=== PATIENT | male | born 1945 | race Hispanic/Latino ===

== ENCOUNTER 2017-08-15 09:16 | Emergency (ER) | payer MEDICARE ==
[~2017-08-15] VITALS: Ht 180.3 cm; Wt 131.5 kg
[~2017-08-15 09:16] MED LIST: DOXAZOSIN MESYLA4 MG; FUROSEMIDE40 MG PO; GLYBURIDE5 MG PO; LANTUS; LYRICA100 MG; NOVOLOG; NOVOLOG MI100 UNIT/1; OMEPRAZOLE20 M1; PIOGLITAZONE30 MG; POTASSIUM CHLO10 MEQ; SIMVASTATIN40 MG PO; TAMSULOSIN HCL0.4 MG; VERAPAMIL ER240 MG
[2017-08-15] MEDS ORDERED: METHOCARBAMOL 750 MG TAB PO ONE (10:15)
[2017-08-15] MEDS ORDERED: KETOROLAC TROMETHAMINE 60 MG/2 ML VIAL IM ONE (10:15)
[2017-08-15] MEDS ORDERED: DEXAMETHASONE SOD PHOS 10 MG/1 ML VIAL INJ ONE ×2 (10:15→10:45)
[2017-08-15] MEDS ORDERED: KETOROLAC TROMETHAMINE 30 MG/ML VIAL IM STA (10:35)
--- NOTE | 2017-08-15 11:39 | Diagnostic Imaging Report ---
PROCEDURE:L-SPINE COMPLETE COMPARISON:None. INDICATIONS:BACK PAIN, LEFT HIP PAIN FINDINGS: There are 5 lumbar-type vertebral bodies. Degenerative changes of the lumbar spine. The vertebral bodies are well-aligned without evidence of spondylolisthesis. There are no fractures, lytic or blastic lesions. The disc-space heights are well-maintained. The sacroiliac joints are unremarkable. CONCLUSION: No acute radiographic abnormality. Dictated by: Cheo Donahue M.D. on 08/15/2017 at 11:47 Electronically approved by: Cheo Donahue M.D. on 08/15/2017 at 11:47
--- NOTE | 2017-08-15 11:45 | Diagnostic Imaging Report ---
PROCEDURE:HIP LEFT 2-3 VW (+/- PELVIS) COMPARISON:None. INDICATIONS:LEFT HIP PAIN FINDINGS: Normal mineralization. No acute fracture or dislocation. Joint spaces are within normal limits. The soft tissues are unremarkable. Sclerotic density in the right iliac wing, likely representing a bone island. Minimal degenerative changes are present in the hips bilaterally, as evidenced by subchondral sclerosis and joint space narrowing. CONCLUSION: No acute radiographic abnormality. Dictated by: Cheo Donahue M.D. on 08/15/2017 at 11:53 Electronically approved by: Cheo Donahue M.D. on 08/15/2017 at 11:53
[2017-08-15 14:30] VITALS: BP 143/80
== END 2017-08-15 15:37 | disposition home or self-care (01) ==
LOC: ER 09:16
DX: M25.552 Pain in left hip (principal); M79.652 Pain in left thigh; M79.662 Pain in left lower leg; M54.16 Radiculopathy, lumbar region; R26.2 Difficulty in walking, not elsewhere classified; E11.40 Type 2 diabetes mellitus with diabetic neuropathy, unspecified
CPT/HCPCS: 72110; 73502; 99283; J1100; J1885

== ENCOUNTER 2018-01-05 11:39 | Emergency (ER) | payer MEDICARE ==
[~2018-01-05] VITALS: Ht 180.3 cm; Wt 131.5 kg
--- OUTSIDE RECORDS SUMMARY | 2018-01-05 11:42 | XMS REPORT ---
Author Author [facility] Address Unknown Phone Unavailable Care Team Providers Care [employer]ra[employer] Name Role Phone YVONNE OLEA PP Unavailable JEFE CHARLES MD, M.D. Unavailable Unavailable YVONNE OLEA Unavailable Unavailable VINAY GROSS Unavailable Unavailable Problems This patient has no known problems. Allergies, Adverse Reactions, Alerts This patient has no known allergies or adverse reactions. Medications This patient has no known medications. Encounters Start Date/Time End Date/Time Encounter Type Admission Type Attending [facility] Facility Care Department Encounter ID 2017-11-14 10:12:00 2017-11-14 10:12:00 Outpatient C YVONNE OLEA [facility] [id number] Results Test Description Test Time Test Comments Text Results Atomic Results Result Comments POC Glucose, Blood 2017-11-26 12:13:00 POC Glucose (test code=POCGLUC) 230 mg/dL 70-115 If you consider your patient critically ill, the Maciel Accu-Chek InformII metershould not be used for Glucose determinations.Draw a venous Glucose and send to the Main Lab for Analysis. POC Glucose, [id number] 09:32:00* Test Item Value Reference Range Comments POC Glucose (test code=POCGLUC) 276 mg/dL 70-115 If you consider your patient critically ill, the Maciel Accu-Chek InformII metershould not be used for Glucose determinations.Draw a venous Glucose and send to the Main Lab for Analysis. Comprehensive Metabolic [id number] 07:14:00* Test Item Value Reference Range Comments Sodium (test code=NA) 139 mmol/L 135-145 Potassium (test code=K) 3.7 mmol/L 3.5-5.1 Chloride (test code=CL) 100 mmol/L 98-105 Carbon Dioxide (test code=CO2) 27 mmol/L 22-29 Glucose (test code=GLU) 147 mg/dL 70-115 Blood Urea Nitrogen (test code=BUN) 18 mg/dL 8-23 Creatinine (test code=CREAT) 1.0 mg/dL 0.7-1.2 Calcium (test code=CA) 8.8 mg/dL 8.3-10.5 Prot Total (test code=TP) 5.9 g/dL 6.4-8.3 Albumin (test code=ALB) 3.3 g/dL 3.5-5.2 A/G Ratio (test code=AGRATIO) 1.3 Ratio Globulin (test code=GLOB) 2.6 2.9-3.1 Bili Total (test code=TBIL) 0.8 mg/dL 0.1-0.9 Alk Phos (test code=APHOS) 73 U/L 40-129 AST (test code=AST) 15 U/L 1-40 ALT (test code=ALT) 9 U/L 1-41 BUN/Creatinine Ratio (test code=BCRATIO) 18.0 Anion Gap (test code=AGAP) 12 mmol/L 7-16 Estimated GFR (test code=GFR) >60 mL/min/1.73m2 eGFR (estimated Glomerular Filtration Rate) is an estimated value,calculated from the patient's serum creatinine using the MDRD equation.It is NOT the patient's actual GFR. The eGFR provides a more clinicallyuseful measure of kidney disease than serum creatinine alone.This calculation takes sex and race into account, if the informationis provided. If the race is not provided, and the patient isAfrican- [place], multiply by 1.212. If sex is not provided, and thepatient is female, multiply by 0.742. Results for patients <18 years ofage have not been validated by the MDRD study and should be interpretedwith caution.eGFR Result Interpretation:eGFR > or=60 is in the Normal RangeeGFR < 60 may mean kidney diseaseeGFR < 15 may mean kidney failureRanges recommended by the National Kidney Foundation,http://nkdep.nih.gov [id number] 07:14:00* Test Item Value Reference Range Comments Phosphorus (test code=PO4) 3.3 mg/dL 2.70-4.50 Magnesium, [id number] 07:14:00* Test Item Value Reference Range Comments Magnesium (test code=MG) 2.4 mg/dL 1.7-2.5 POC Glucose, [id number] 21:04:00* Test Item Value Reference Range Comments POC Glucose (test code=POCGLUC) 217 mg/dL 70-115 If you consider your patient critically ill, the Maciel Accu-Chek InformII metershould not be used for Glucose determinations.Draw a venous Glucose and send to the Main Lab for Analysis. POC Glucose, [id number] 16:34:00* Test Item Value Reference Range Comments POC Glucose (test code=POCGLUC) 151 mg/dL 70-115 Notify RN or MDIf you consider your patient critically ill, the Mcaiel Accu-Chek InformII metershould not be used for Glucose determinations.Draw a venous Glucose and send to the Main Lab for Analysis. POC Glucose, [id number] 12:04:00* Test Item Value Reference Range Comments POC Glucose (test code=POCGLUC) 218 mg/dL 70-115 Notify RN or MDIf you consider your patient critically ill, the Maciel Accu-Chek InformII metershould not be used for Glucose determinations.Draw a venous Glucose and send to the Main Lab for Analysis. POC Glucose, [id number] 08:00:00* Test Item Value Reference Range Comments POC Glucose (test code=POCGLUC) 180 mg/dL 70-115 Notify RN or MDIf you consider your patient critically ill, the Maciel Accu-Chek InformII metershould not be used for Glucose determinations.Draw a venous Glucose and send to the Main Lab for Analysis. Comprehensive Metabolic [id number] 06:12:00* Test Item Value Reference Range Comments Sodium (test code=NA) 141 mmol/L 135-145 Potassium (test code=K) 3.5 mmol/L 3.5-5.1 Chloride (test code=CL) 101 mmol/L 98-105 Carbon Dioxide (test code=CO2) 28 mmol/L 22-29 Glucose (test code=GLU) 170 mg/dL 70-115 Blood Urea Nitrogen (test code=BUN) 18 mg/dL 8-23 Creatinine (test code=CREAT) 1.2 mg/dL 0.7-1.2 Calcium (test code=CA) 8.5 mg/dL 8.3-10.5 Prot Total (test code=TP) 5.4 g/dL 6.4-8.3 Albumin (test code=ALB) 3.0 g/dL 3.5-5.2 A/G Ratio (test code=AGRATIO) 1.3 Ratio Globulin (test code=GLOB) 2.4 2.9-3.1 Bili Total (test code=TBIL) 0.7 mg/dL 0.1-0.9 Alk Phos (test code=APHOS) 69 U/L 40-129 AST (test code=AST) 13 U/L 1-40 ALT (test code=ALT) 7 U/L 1-41 BUN/Creatinine Ratio (test code=BCRATIO) 15.0 Anion Gap (test code=AGAP) 12 mmol/L 7-16 Estimated GFR (test code=GFR) >60 mL/min/1.73m2 eGFR (estimated Glomerular Filtration Rate) is an estimated value,calculated from the patient's serum creatinine using the MDRD equation.It is NOT the patient's actual GFR. The eGFR provides a more clinicallyuseful measure of kidney disease than serum creatinine alone.This calculation takes sex and race into account, if the informationis provided. If the race is not provided, and the patient isAfrican- [place], multiply by 1.212. If sex is not provided, and thepatient is female, multiply by 0.742. Results for patients <18 years ofage have not been validated by the MDRD study and should be interpretedwith caution.eGFR Result Interpretation:eGFR > or=60 is in the Normal RangeeGFR < 60 may mean kidney diseaseeGFR < 15 may mean kidney failureRanges recommended by the National Kidney Foundation,http://nkdep.nih.gov Magnesium, [id number] 06:12:00* Test Item Value Reference Range Comments Magnesium (test code=MG) 2.5 mg/dL 1.7-2.5 [id number] 06:12:00* Test Item Value Reference Range Comments Phosphorus (test code=PO4) 2.7 mg/dL 2.70-4.50 POC Glucose, [id number] 21:02:00* Test Item Value Reference Range Comments POC Glucose (test code=POCGLUC) 176 mg/dL 70-115 If you consider your patient critically ill, the Maciel Accu-Chek InformII metershould not be used for Glucose determinations.Draw a venous Glucose and send to the Main Lab for Analysis. POC Glucose, [id number] 16:28:00* Test Item Value Reference Range Comments POC Glucose (test code=POCGLUC) 340 mg/dL 70-115 Notify RN or MDIf you consider your patient critically ill, the Maciel Accu-Chek InformII metershould not be used for Glucose determinations.Draw a venous Glucose and send to the Main Lab for Analysis. POC Glucose, [id number] 11:44:00* Test Item Value Reference Range Comments POC Glucose (test code=POCGLUC) 265 mg/dL 70-115 Notify RN or MDIf you consider your patient critically ill, the Maciel Accu-Chek InformII metershould not be used for Glucose determinations.Draw a venous Glucose and send to the Main Lab for Analysis. POC Glucose, [id number] 07:51:00* Test Item Value Reference Range Comments POC Glucose (test code=POCGLUC) 144 mg/dL 70-115 Notify RN or MDIf you consider your patient critically ill, the Maciel Accu-Chek InformII metershould not be used for Glucose determinations.Draw a venous Glucose and send to the Main Lab for Analysis. Magnesium, [id number] 06:44:00* Test Item Value Reference Range Comments Magnesium (test code=MG) 2.4 mg/dL 1.7-2.5 Comprehensive Metabolic [id number] 06:44:00* Test Item Value Reference Range Comments Sodium (test code=NA) 140 mmol/L 135-145 Potassium (test code=K) 3.4 mmol/L 3.5-5.1 Chloride (test code=CL) 99 mmol/L 98-105 Carbon Dioxide (test code=CO2) 29 mmol/L 22-29 Glucose (test code=GLU) 176 mg/dL 70-115 Blood Urea Nitrogen (test code=BUN) 20 mg/dL 8-23 Creatinine (test code=CREAT) 1.2 mg/dL 0.7-1.2 Calcium (test code=CA) 8.3 mg/dL 8.3-10.5 Prot Total (test code=TP) 5.9 g/dL 6.4-8.3 Albumin (test code=ALB) 3.2 g/dL 3.5-5.2 A/G Ratio (test code=AGRATIO) 1.2 Ratio Globulin (test code=GLOB) 2.7 2.9-3.1 Bili Total (test code=TBIL) 0.5 mg/dL 0.1-0.9 Alk Phos (test code=APHOS) 73 U/L 40-129 AST (test code=AST) 12 U/L 1-40 ALT (test code=ALT) 6 U/L 1-41 BUN/Creatinine Ratio (test code=BCRATIO) 16.7 Anion Gap (test code=AGAP) 12 mmol/L 7-16 Estimated GFR (test code=GFR) >60 mL/min/1.73m2 eGFR (estimated Glomerular Filtration Rate) is an estimated value,calculated from the patient's serum creatinine using the MDRD equation.It is NOT the patient's actual GFR. The eGFR provides a more clinicallyuseful measure of kidney disease than serum creatinine alone.This calculation takes sex and race into account, if the informationis provided. If the race is not provided, and the patient isAfrican- [place], multiply by 1.212. If sex is not provided, and thepatient is female, multiply by 0.742. Results for patients <18 years ofage have not been validated by the MDRD study and should be interpretedwith caution.eGFR Result Interpretation:eGFR > or=60 is in the Normal RangeeGFR < 60 may mean kidney diseaseeGFR < 15 may mean kidney failureRanges recommended by the National Kidney Foundation,http://nkdep.nih.gov [id number] 06:44:00* Test Item Value Reference Range Comments Phosphorus (test code=PO4) 2.6 mg/dL 2.70-4.50 [id number] 06:10:00* Test Item Value Reference Range Comments Hemoglobin (test code=HGB) 10.6 gm/dL 13.4-17.4 POC Glucose, [id number] 19:09:00* Test Item Value Reference Range Comments POC Glucose (test code=POCGLUC) 349 mg/dL 70-115 If you consider your patient critically ill, the Maciel Accu-Chek InformII metershould not be used for Glucose determinations.Draw a venous Glucose and send to the Main Lab for Analysis. POC Glucose, [id number] 16:55:00* Test Item Value Reference Range Comments POC Glucose (test code=POCGLUC) 305 mg/dL 70-115 If you consider your patient critically ill, the Maciel Accu-Chek InformII metershould not be used for Glucose determinations.Draw a venous Glucose and send to the Main Lab for Analysis. POC Glucose, [id number] 07:43:00* Test Item Value Reference Range Comments POC Glucose (test code=POCGLUC) 192 mg/dL 70-115 If you consider your patient critically ill, the Maciel Accu-Chek InformII metershould not be used for Glucose determinations.Draw a venous Glucose and send to the Main Lab for Analysis. Magnesium, [id number] 06:33:00* Test Item Value Reference Range Comments Magnesium (test code=MG) 2.1 mg/dL 1.7-2.5 Comprehensive Metabolic [id number] 06:33:00* Test Item Value Reference Range Comments Sodium (test code=NA) 138 mmol/L 135-145 Potassium (test code=K) 4.0 mmol/L 3.5-5.1 Chloride (test code=CL) 97 mmol/L 98-105 Carbon Dioxide (test code=CO2) 31 mmol/L 22-29 Glucose (test code=GLU) 198 mg/dL 70-115 Blood Urea Nitrogen (test code=BUN) 22 mg/dL 8-23 Creatinine (test code=CREAT) 1.3 mg/dL 0.7-1.2 Calcium (test code=CA) 9.1 mg/dL 8.3-10.5 Prot Total (test code=TP) 6.5 g/dL 6.4-8.3 Albumin (test code=ALB) 3.5 g/dL 3.5-5.2 A/G Ratio (test code=AGRATIO) 1.2 Ratio Globulin (test code=GLOB) 3.0 2.9-3.1 Bili Total (test code=TBIL) 0.8 mg/dL 0.1-0.9 Alk Phos (test code=APHOS) 72 U/L 40-129 AST (test code=AST) 12 U/L 1-40 ALT (test code=ALT) 8 U/L 1-41 BUN/Creatinine Ratio (test code=BCRATIO) 16.9 Anion Gap (test code=AGAP) 10 mmol/L 7-16 Estimated GFR (test code=GFR) 58 mL/min/1.73m2 eGFR (estimated Glomerular Filtration Rate) is an estimated value,calculated from the patient's serum creatinine using the MDRD equation.It is NOT the patient's actual GFR. The eGFR provides a more clinicallyuseful measure of kidney disease than serum creatinine alone.This calculation takes sex and race into account, if the informationis provided. If the race is not provided, and the patient isAfrican- [place], multiply by 1.212. If sex is not provided, and thepatient is female, multiply by 0.742. Results for patients <18 years ofage have not been validated by the MDRD study and should be interpretedwith caution.eGFR Result Interpretation:eGFR > or=60 is in the Normal RangeeGFR < 60 may mean kidney diseaseeGFR < 15 may mean kidney failureRanges recommended by the National Kidney Foundation,http://nkdep.nih.gov CBC with [id number] 06:31:00* Test Item Value Reference Range Comments WBC (test code=WBC) 13.4 K/cumm 4.4-10.5 RBC (test code=RBC) 4.00 M/cumm 4.10-5.70 Hemoglobin (test code=HGB) 12.0 gm/dL 13.4-17.4 Hematocrit (test code=HCT) 35.0 % 38.7-52.0 MCV (test code=MCV) 87.4 fL 80-100 MCH (test code=MCH) 29.9 pg 27.0-32.5 MCHC (test code=MCHC) 34.2 g/dL 32.0-37.5 RDW (test code=RDW) 13.6 % 11.5-14.5 Platelet Count (test code=PLTCT) 212 K/cumm 140-440 MPV (test code=MPV) 8.2 fL Diff Method (test code=DIFFM) Auto Neutrophil (test code=NEUT) 78.0 % 36-70 Lymphocyte (test code=LYMPH) 13.9 % 12-44 Monocyte (test code=MONO) 7.0 % 0-11 Eosinophil (test code=EOS) 0.7 % 0-7 Basophil (test code=BASO) 0.3 % 0-2 Neutro Abs (test code=ANEUT) 10.5 K/cumm 1.6-7.4 Lymph Abs (test code=ALYMPH) 1.9 K/cumm 0.5-4.6 Maury Abs (test code=AMONO) 0.9 K/cumm 0.0-1.2 Eos Abs (test code=AEOS) 0.10 K/cumm 0.00-0.74 Baso Abs (test code=ABASO) 0.1 K/cumm 0.00-0.21 [id number] 06:30:00* Test Item Value Reference Range Comments Phosphorus (test code=PO4) 3.1 mg/dL 2.70-4.50 POC Glucose, [id number] 19:23:00* Test Item Value Reference Range Comments POC Glucose (test code=POCGLUC) 293 mg/dL 70-115 If you consider your patient critically ill, the Maciel Accu-Chek InformII metershould not be used for Glucose determinations.Draw a venous Glucose and send to the Main Lab for Analysis. POC Glucose, [id number] 16:04:00* Test Item Value Reference Range Comments POC Glucose (test code=POCGLUC) 269 mg/dL 70-115 Notify RN or MDIf you consider your patient critically ill, the Maciel Accu-Chek InformII metershould not be used for Glucose determinations.Draw a venous Glucose and send to the Main Lab for Analysis. POC Glucose, [id number] 11:27:00* Test Item Value Reference Range Comments POC Glucose (test code=POCGLUC) 325 mg/dL 70-115 Notify RN or MDIf you consider your patient critically ill, the Maciel Accu-Chek InformII metershould not be used for Glucose determinations.Draw a venous Glucose and send to the Main Lab for Analysis. [id number] 07:10:00* Test Item Value Reference Range Comments Hemoglobin (test code=HGB) 11.9 gm/dL 13.4-17.4 Magnesium, [id number] 07:08:00* Test Item Value Reference Range Comments Magnesium (test code=MG) 2.0 mg/dL 1.7-2.5 Comprehensive Metabolic [id number] 07:08:00* Test Item Value Reference Range Comments Sodium (test code=NA) 138 mmol/L 135-145 Potassium (test code=K) 3.8 mmol/L 3.5-5.1 Chloride (test code=CL) 95 mmol/L 98-105 Carbon Dioxide (test code=CO2) 32 mmol/L 22-29 Glucose (test code=GLU) 194 mg/dL 70-115 Blood Urea Nitrogen (test code=BUN) 26 mg/dL 8-23 Creatinine (test code=CREAT) 1.3 mg/dL 0.7-1.2 Calcium (test code=CA) 8.6 mg/dL 8.3-10.5 Prot Total (test code=TP) 6.1 g/dL 6.4-8.3 Albumin (test code=ALB) 3.7 g/dL 3.5-5.2 A/G Ratio (test code=AGRATIO) 1.5 Ratio Globulin (test code=GLOB) 2.4 2.9-3.1 Bili Total (test code=TBIL) 0.5 mg/dL 0.1-0.9 Alk Phos (test code=APHOS) 73 U/L 40-129 AST (test code=AST) 16 U/L 1-40 ALT (test code=ALT) 15 U/L 1-41 BUN/Creatinine Ratio (test code=BCRATIO) 20.0 Anion Gap (test code=AGAP) 11 mmol/L 7-16 Estimated GFR (test code=GFR) 58 mL/min/1.73m2 eGFR (estimated Glomerular Filtration Rate) is an estimated value,calculated from the patient's serum creatinine using the MDRD equation.It is NOT the patient's actual GFR. The eGFR provides a more clinicallyuseful measure of kidney disease than serum creatinine alone.This calculation takes sex and race into account, if the informationis provided. If the race is not provided, and the patient isAfrican- [place], multiply by 1.212. If sex is not provided, and thepatient is female, multiply by 0.742. Results for patients <18 years ofage have not been validated by the MDRD study and should be interpretedwith caution.eGFR Result Interpretation:eGFR > or=60 is in the Normal RangeeGFR < 60 may mean kidney diseaseeGFR < 15 may mean kidney failureRanges recommended by the National Kidney Foundation,http://nkdep.nih.gov POC Glucose, [id number] 21:01:00* Test Item Value Reference Range Comments POC Glucose (test code=POCGLUC) 269 mg/dL 70-115 If you consider your patient critically ill, the Maciel Accu-Chek InformII metershould not be used for Glucose determinations.Draw a venous Glucose and send to the Main Lab for Analysis. 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 POC Glucose, [id number] 12:31:00 * Test Item Value Reference Range Comments POC Glucose (test code=POCGLUC) 178 mg/dL 70-115 If you consider your patient critically ill, the Maciel Accu-Chek InformII metershould not be used for Glucose determinations.Draw a venous Glucose and send to the Main Lab for Analysis. POC Glucose, [id number] 07:36:00* Test Item Value Reference Range Comments POC Glucose (test code=POCGLUC) 119 mg/dL 70-115 Notify RN or MDIf you consider your patient critically ill, the Maciel Accu-Chek InformII metershould not be used for Glucose determinations.Draw a venous Glucose and send to the Main Lab for Analysis. Culture, [id number] 08:46:00Specimen: UrineCollected: 11/14/2017 12:59 Status: Final Last Updated: 11/16/2017 08:46 Culture Result (Final ) (Final) 11/15/17 No growth 24 hours 11/16/17 <10,000 CFU/mL Non Lactose W[employer] Sales[employer] Gram negative rods Culture, [id number] 08:44:00Specimen: NasalCollected: 11/14/2017 12:59 Status: Final Last Updated: 11/16/2017 08: 44 Culture Result (Final) (Final) 11/15/17 Normal ezra at 24 hours 11/16/17 Normal ezra at 48 hours Glycosylated [id number] 15:13:00 * Test Item Value Reference Range Comments HBA1c (test code=HBA1C) 6.4 % 4.8-5.9 Partial Thromboplastin [id number] 13:45:00* Test Item Value Reference Range Comments aPTT (test code=PTT) 45.30 seconds 24.39-37.25 Prothrombin [id number] 13:45:00* Test Item Value Reference Range Comments PT (test code=PT) 15.10 seconds 9.78-13.35 INR (test code=INR) 1.33 Ratio 0.6-1.2 Comprehensive Metabolic [id number] 13:43:00* Test Item Value Reference Range Comments Sodium (test code=NA) 138 mmol/L 135-145 Potassium (test code=K) 4.0 mmol/L 3.5-5.1 Chloride (test code=CL) 92 mmol/L 98-105 Carbon Dioxide (test code=CO2) 31 mmol/L 22-29 Glucose (test code=GLU) 181 mg/dL 70-115 Blood Urea Nitrogen (test code=BUN) 35 mg/dL 8-23 Creatinine (test code=CREAT) 1.6 mg/dL 0.7-1.2 Calcium (test code=CA) 9.5 mg/dL 8.3-10.5 Prot Total (test code=TP) 8.0 g/dL 6.4-8.3 Albumin (test code=ALB) 4.7 g/dL 3.5-5.2 A/G Ratio (test code=AGRATIO) 1.4 Ratio Globulin (test code=GLOB) 3.3 2.9-3.1 Bili Total (test code=TBIL) 0.5 mg/dL 0.1-0.9 Alk Phos (test code=APHOS) 83 U/L 40-129 AST (test code=AST) 16 U/L 1-40 ALT (test code=ALT) 16 U/L 1-41 BUN/Creatinine Ratio (test code=BCRATIO) 21.9 Anion Gap (test code=AGAP) 15 mmol/L 7-16 Estimated GFR (test code=GFR) 45 mL/min/1.73m2 eGFR (estimated Glomerular Filtration Rate) is an estimated value,calculated from the patient's serum creatinine using the MDRD equation.It is NOT the patient's actual GFR. The eGFR provides a more clinicallyuseful measure of kidney disease than serum creatinine alone.This calculation takes sex and race into account, if the informationis provided. If the race is not provided, and the patient isAfrican- [place], multiply by 1.212. If sex is not provided, and thepatient is female, multiply by 0.742. Results for patients <18 years ofage have not been validated by the MDRD study and should be interpretedwith caution.eGFR Result Interpretation:eGFR > or=60 is in the Normal RangeeGFR < 60 may mean kidney diseaseeGFR < 15 may mean kidney failureRanges recommended by the National Kidney Foundation,http://nkdep.nih.gov CBC with [id number] 13:38:00* Test Item Value Reference Range Comments WBC (test code=WBC) 10.5 K/cumm 4.4-10.5 RBC (test code=RBC) 4.78 M/cumm 4.10-5.70 Hemoglobin (test code=HGB) 14.1 gm/dL 13.4-17.4 Hematocrit (test code=HCT) 41.9 % 38.7-52.0 MCV (test code=MCV) 87.5 fL 80-100 MCH (test code=MCH) 29.4 pg 27.0-32.5 MCHC (test code=MCHC) 33.6 g/dL 32.0-37.5 RDW (test code=RDW) 13.5 % 11.5-14.5 Platelet Count (test code=PLTCT) 283 K/cumm 140-440 MPV (test code=MPV) 8.4 fL Diff Method (test code=DIFFM) Auto Neutrophil (test code=NEUT) 58.7 % 36-70 Lymphocyte (test code=LYMPH) 29.4 % 12-44 Monocyte (test code=MONO) 6.8 % 0-11 Eosinophil (test code=EOS) 4.5 % 0-7 Basophil (test code=BASO) 0.5 % 0-2 Neutro Abs (test code=ANEUT) 6.2 K/cumm 1.6-7.4 Lymph Abs (test code=ALYMPH) 3.1 K/cumm 0.5-4.6 Maury Abs (test code=AMONO) 0.7 K/cumm 0.0-1.2 Eos Abs (test code=AEOS) 0.48 K/cumm 0.00-0.74 Baso Abs (test code=ABASO) 0.1 K/cumm 0.00-0.21 Urinalysis [id number] 13:33:00* Test Item Value Reference Range Comments Color (test code=COLOR) Straw Yellow,Straw,Pl yellow Clarity (test code=CLAR) Clear Clear Specific Vergas (test code=SPGR) 1.007 1.001-1.035 pH (test code=PH) 5.0 5.0-9.0 Ketone (test code=KET) Negative mg/dL Negative Glucose (test code=GLUCUR) Negative mg/dL Negative Protein (test code=PROT) Negative mg/dL Negative Bilirubin (test code=BILI) Negative mg/dL Negative Occult Blood (test code=UDOB) Negative Negative Urobilinogen (test code=UROB) 0.2 mg/dL 0.2-1.0 Nitrite (test code=NIT) Negative Negative Leuk Esterase (test code=LEUK) Negative Negative Micros Exam (test code=MEXAM) Not indicated XR CHEST 2V, [id number] 12:25:17PA AND LATERAL CHEST:CLINICAL INFORMATION : M17.11: UNILATERAL PRIMARY OSTEOARTHRITIS, RIGHTKNEE COMPARISONS: None available.FINDINGS: Lungs and pleura: The lungs are well-expanded. No airspaceconsolidation is seen. The costophrenic angles are sharp.Heart and mediastinum: The cardiac silhouette is mildly enlarged. Pulmonary vascularity is normal.Bones and soft tissues: UnremarkableIMPRESSION:No acute abnormalityLocation: R16SP LUMBAR, COMPLETE MIN [address]VW [address] [place], [place] [address] Patient Name: SINA CHAN MR #: [id number] : 1945 Age/Sex: 71/ M Req #: [id number] Adm Physician: Ordered by: VINAY GROSS MD Report #: [id number] Location: ER Room/Bed: Procedure: [id number] DX/SP LUMBAR, COMPLETE MIN 4VW Exam Date: 08/15/17 Exam Time: 1100 REPORT STATUS: Signed PROCEDURE: L-SPINE COMPLETE COMPARISON: None. INDICATIONS: BACK PAIN, LEFT HIP PAIN FINDINGS: There are 5 lumbar-type vertebral bodies. Degenerative changes of the lumbar spine. The vertebral bodies are well-aligned without evidence of spondylolisthesis. There are no fractures, lytic or blastic lesions. The disc-space heights are well- maintained. The sacroiliac joints are unremarkable. CONCLUSION: No acute radiographic abnormality. Dictated by: Dandy Sotelo M.D. on 08/15 at 11:47 Electronically approved by: Dandy Sotelo M.D. on 2017 at 11:47 Dictated By: DANDY SOTELO MD [id number] Transcribed By: KRISSY on 08/15/17 1147 COPY TO: VINAY GROSS MD HIP LEFT 2-3 VW (+/- PELVIS) [place] [address] Patient Name: SINA CHAN MR #: [id number] : 1945 Age/Sex: 71/M Req #: [id number] Adm Physician: Ordered by: VINAY GROSS MD Report #: [id number] Location: ER Room/Bed : Procedure: [id number] DX/HIP LEFT 2-3 VW (+/- PELVIS ) Exam Date: Exam Time: REPORT STATUS: Signed PROCEDURE: HIP LEFT 2-3 VW (+/- PELVIS) COMPARISON: None. INDICATIONS: LEFT HIP PAIN FINDINGS: Normal mineralization. No acute fracture or dislocation. Joint spaces are within normal limits. The soft tissues are unremarkable. Sclerotic density in the right iliac wing , likely representing a bone island. Minimal degenerative changes are present in the hips bilaterally, as evidenced by subchondral sclerosis and joint space narrowing. CONCLUSION: No acute radiographic abnormality. Dictated by: Dandy Sotelo M.D. on 08/15/2017 at 11:53 Electronically approved by: Dandy Sotelo M.D. on 08/15/2017 at 11:53 Dictated By: DANDY SOTELO MD [id number] Transcribed By: KRISSY on 08/15/17 1152 COPY TO: VINAY GROSS MD
--- OUTSIDE RECORDS SUMMARY | 2018-01-05 11:42 | XMS REPORT ---
Author Organization Unknown Address [address] [place] [address] Phone [phone] Care Team Providers Care Trimmer Operator Three Knife Name Role Phone ROE "ALEXANDRO" LINCOLN HARRISON 3 [phone] AGGIE SNIDER 60 Unavailable OLAMIDE Gtz VICTOR MANUEL 212 [phone] ANDRES SUAZO 118 [phone] Allergies Code Code System Name Reaction Severity Status Onset Juan Pablo Inhibitors Edema Active 11/26/2015 Arb-angiotensin Receptor Antagonist Angioedema Moderate Active 2016 Medications Name Status Start Date Stop Date acetaminophen 300 mg-codeine 30 mg tablet Completed 11/02/2016 amlodipine 10 mg tablet Active Not available Boostrix Tdap 2.5 Lf unit-8 mcg-5 Lf/0.5 mL intramuscular syringe Completed 01/08/2017 clotrimazole 1 % topical cream Completed 11/02/2016 Colcrys 0.6 mg tablet Completed 11/02/2016 cyanocobalamin (vit B-12) 1,[address] 1 tablet every day by sublingual route for 30 days. Completed 2016 diclofenac sodium 75 mg tablet,delayed release Take 1 tablet twice a day by oral route for 30 days. Completed 04/06/2017 Eliquis 5 mg tablet Active Not available furosemide 40 mg tablet Active Not available glipizide 5 mg tablet TAKE 1 TABLET BY MOUTH TWICE DAILY FOR 90 DAYS Completed 07/09/2017 Humalog KwikPen (U-100) Insulin 100 unit/mL subcutaneous Active Not available Humalog Mix 75-25 KwikPen U-100 insulin 100 unit/mL subcutaneous pen Completed 10/22/2017 hydralazine 25 mg tablet Completed 11/02/2016 hydrocodone 10 mg-acetaminophen 325 mg tablet Active Not available ibuprofen 600 mg tablet Completed 01/30/2017 Levemir FlexTouch U-100 Insulin 100 unit/mL (3 mL) subcutaneous pen inject 10-35 units at bed time Active Not available losartan 100 mg-hydrochlorothiazide 12.5 mg tablet Completed 06/27/2016 losartan 100 mg-hydrochlorothiazide 25 mg tablet Completed 03/15/2017 Lyrica 100 mg capsule Completed 02/13/2017 Lyrica 150 mg capsule Active Not available meloxicam 15 mg tablet Take 1 tablet every day by oral route for 30 days. Active Not available methylprednisolone 4 mg tablets in a dose pack Completed 08/28/2016 metoprolol tartrate 100 mg tablet Active Not available metoprolol tartrate 50 mg tablet Completed 04/16/2017 OneTouch Delica Lancets 33 gauge Completed 01/30/2017 OneTouch Ultra Test strips Active Not available EncoverTouch Ultra2 kit Completed 11/02/2016 oxycodone-acetaminophen 10 mg-325 mg tablet Take 1 tablet every 8 hours by oral route for 30 days. Active Not available potassium chloride ER 20 mEq tablet,extended release Active Not available Prevnar 13 (PF) 0.5 mL intramuscular syringe Completed 01/08/2017 simvastatin 40 mg tablet Active Not available tamsulosin 0.4 mg capsule Active Not available thiamine HCl (vitamin B1) 100 mg tablet Take 1 tablet every day by oral route for 30 days. 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 06/10/2015 History Neurologic Disorder Associated with Type 2 Diabetes Mellitus Active 2014 History Testicular Hypofunction Active 06/10/2015 History Pure Hypercholesterolemia Active 06/10/2015 History Hypertensive Heart Disease Unknown 06/10/2015 History Cholesterolosis of Gallbladder Active 06/10/2015 History Chronic Kidney Disease Stage 3 Active 06/10/2015 History Low Back Pain Active 06/10/2015 History Idiopathic Osteoarthritis Active 06/28/2015 History Lower Urinary Tract Symptoms Due to Benign Prostatic Hypertrophy Active 09/06 History Nonproliferative Diabetic Retinopathy Active 01/25/2017 Morbid Obesity Active 02/13/2017 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 History of Nephrectomy Active 08/27/2017 Procedures Date Name Performed by 05/07/2014 Colonoscopy Notes: repeat in 2 years Information not available Hernia Repair Notes: 2007 Information not available Back Surgery Notes: 1997, 1998, 2000 Information not available 05/31/2016 XR, Knee, 3 View Information not available 08/14/2016 MRI, Knee, W/o Contrast Information not available 10/24/2017 US, Neck, Soft Tissue [facility] [address] [facility] [address] [place] [address] (Work [address]) 10/24/2017 US, Neck [facility] [address] [facility] [address] [place] [address] (Work Place) Notes: 11/26/2015: S/P Nephrectomy L 2* to Renal Cell Ca; Surgery Date: 2006 S/P Ventral Hernia; Surgery Date: 2007 S/P Back surgery x 3; Surgery Date: 1997, 1998, 2000 Lab Results Date Name Specimen Result Interpretation Description Value Range Status Address 05/23/2017 CMP, Serum or Plasma High Glucose, Serum 308 mg/dL 65- 99 mg/dL Final [facility]: [address] A Spears Bun 27 mg/dL 8-27 mg/dL Final [facility]: [address] [place] Creatinine, Serum 1.26 mg/dL 0.76-1.27 mg/dL Final [facility]: [address] [place] Low eGFR If Nonafricn AM 57 mL/min/1.73 >59 mL/min/1.73 Final [facility]: [address] Spears eGFR If Africn AM 65 mL/min/1.73 >59 mL/min/1.73 Final [facility]: [address] [place] BUN/creatinine Ratio 21 10-24 Final [facility]: [address] [place] Sodium, Serum 140 mmol/L 134-144 mmol/L Final [facility]: [address] [place] Potassium, Serum 4.4 mmol/L 3.5-5.2 mmol/L Final [facility]: [address] [place] Chloride, Serum 98 mmol/L 96-106 mmol/L Final [facility]: [address] [place] Carbon Dioxide, Total 22 mmol/L 18-29 mmol/L [facility] [address] [facility] Calcium, Serum 9.1 mg/dL 8.6-10.2 mg/dL Final [facility]: [address] [facility] Protein, Total, Serum 6.8 g/dL 6.0-8.5 g/dL Final [facility]: [address] Albumin, Serum 4.3 g/dL 3.5-4.8 g/dL Final [facility]: [address] Las[address] Kelly [address] [place] [address] Globulin, Total 2.5 g/dL 1.5-4.5 g/dL Final [facility]: [address] Las[address] Kelly [address] [place] [address] A/g Ratio 1.7 1.2-2.2 Final [facility]: [address] [facility] Bilirubin, Total 0.3 mg/dL 0.0-1.2 mg/dL Final [facility]: [address] Smith [address] Alkaline Phosphatase, S 83 IU/L 39-117 IU/L Final [facility]: [address] Ast (Sgot) 17 IU/L 0-40 IU/L Final [facility]: [address] Alt (Sgpt) 24 IU/L 0-44 IU/L Final [facility] [address] [facility] 05/23/2017 CBC W/ Auto Diff Wbc 8.7 x10e3/uL 3.4-10.8 x10e3/uL Final [facility]: [address] Rbc 4.62 x10e6/uL 4.14-5.80 x10e6/uL Final [facility]: [address] [facility] Hemoglobin 13.6 g/dL 12.6-17.7 g/dL Final [facility]: [address] Las[address] Smith [facility] Hematocrit 41.0 % 37.5-51.0 % Final [facility]: [address] Lashell Kelly [address] [place] [address] Mcv 89 fL 79-97 fL Final [facility]: [address] Lashell Kelly [address] [place] [address] Mch 29.4 pg 26.6-33.0 pg Final [facility]: [address] [place] Mchc 33.2 g/dL 31.5-35.7 g/dL Final [facility]: [address] 13.6 % 12.3-15.4 % Final [facility]: [address] Miguel A pSears Platelets 274 x10e3/uL 150-379 x10e3/uL Final [facility]: [address] Spears Neutrophils 60 % not estab. % Final [facility]: [address] Lymphs 31 % not estab. % [facility]: [address] Monocytes 6 % not estab. % [facility]: [address] Spe[address] Eos 2 % not estab. % [facility]: [address] Spe[address] Basos 1 % not estab. % [facility]: [address] [place] Immature Cells comment Cancelled [facility]: [address] [place] Neutrophils (Absolute) 5.3 x10e3/uL 1.4-7.0 x10e3/uL Final [facility]: [address] Spe[address] Lymphs (Absolute) 2.7 x10e3/uL 0.7-3.1 x10e3/uL Final [facility]: [address] [place] Monocytes(absolute) 0.5 x10e3/uL 0.1-0.9 x10e3/uL Final [facility]: [address] [place] Eos (Absolute) 0.2 x10e3/uL 0.0-0.4 x10e3/uL Final [facility]: [address] [place] Baso (Absolute) 0.0 x10e3/uL 0.0-0.2 x10e3/uL Final [facility]: [address] [place] Immature Granulocytes 0 % not estab. % Final [facility]: [address] [place] Immature Grans (Abs) 0.0 x10e3/uL 0.0-0.1 x10e3/uL Final [facility]: [address] [place] [address] Hematology Comments: comment Cancelled [facility]: [address] [place] [address] 05/23/2017 Hepatitis C Virus RNA, Quant, PCR, Serum or Plasma HCV Ab <0.1 s/co ratio 0.0-0.9 s/co ratio Final [facility]: [address] [place] [address] 05/23/2017 Lipid Panel, Serum Cholesterol, Total 113 mg/dL 100- 199 mg/dL Final [facility]: [address] [place] [address] High Triglycerides 224 mg/dL 0-149 mg/dL Final [facility]: [address] [place] [address] HDL Cholesterol 42 mg/dL >39 mg/dL [facility]: [address] [place] [address] High VLDL Cholesterol Ashu 45 mg/dL 5-40 mg/dL [facility]: [address] [place] [address] LDL Cholesterol Calc 26 mg/dL 0-99 mg/dL Final [facility]: [address] [place] [address] 05/23/2017 T4, Free, Serum T4,Free(direct) 1.30 NG/dL 0.82-1.77 NG/dL Final [facility]: [address] [place] [address] 05/23/2017 TSH, Serum or Plasma Tsh 0.879 uIU/mL 0.450-4.500 uIU /mL Final [facility]: [address] [place] [address] 05/23/2017 PSA, Serum or Plasma Prostate Specific Ag, Serum 0.5 NG/mL 0.0-4.0 NG/mL Final [facility]: [address] [place] [address] 05/23/2017 Vitamin D, 25-Hydroxy, Total, Serum Vitamin D, 25- Hydroxy 31.6 NG/mL 30.0-100.0 NG/mL Final [facility]: [address] [place] [address] 05/23/2017 HbA1C (Hemoglobin a1C), Blood High Hemoglobin a1C 7.8 % 4.8-5.6 % Final [facility]: [address] [place] [address] Estim. Avg Glu (EAG) 177 mg/dL Final [facility]: [address] maureen [address] 05/23/2017 Comment: Comment: comment Final [facility]: [address] maureen [address] 05/23/2017 PTH (Parathyroid Hormone), Intact, Serum or Plasma PTH, Intact 38 pg/mL 15-65 pg/mL Final [facility]: [address] maureen [address] 11/02/2016 Lipid Panel, Serum Cholesterol, Total 103 mg/dL 100- 199 mg/dL Final [facility]: [address] High Triglycerides 165 mg/dL 0-149 mg/dL Final [facility]: [address] HDL Cholesterol 47 mg/dL >39 mg/dL Final [facility]: [address] VLDL Cholesterol Ashu 33 mg/dL 5-40 mg/dL Final [facility]: [address] LDL Cholesterol Calc 23 mg/dL 0-99 mg/dL Final [facility]: [address] maureen [address] 11/02/2016 TSH, Serum or Plasma Tsh 1.280 uIU/mL 0.450-4.500 uIU /mL Final [facility]: [address] maureen [address] 11/02/2016 CBC W/ Auto Diff Wbc 7.3 x10e3/uL 3.4-10.8 x10e3/uL Final [facility]: [address] Rbc 4.16 x10e6/uL 4.14-5.80 x10e6/uL Final [facility]: [address] maureen [address] Low Hemoglobin 12.3 g/dL 12.6-17.7 g/dL Final [facility]: [address] Low Hematocrit 37.0 % 37.5-51.0 % Final [facility]: [address]ure[address] Mcv 89 fL 79-97 fL Final [facility]: [address] Mch 29.6 pg 26.6-33.0 pg Final [facility]: [address] Mchc 33.2 g/dL 31.5-35.7 g/dL Final [facility]: [address] [place] Rdw 14.0 % 12.3-15.4 % Final [facility]: [address] [place] Platelets 269 x10e3/uL 150-379 x10e3/uL Final [facility]: [address] [place] Neutrophils 56 % Final [facility]: [address] [place] Lymphs 32 % Final [facility]: [address]frey, [place] Monocytes 7 % Final [facility]: [address] [place] Eos 4 % Final [facility]: [address] Las[address] Kelly [facility] [place] Basos 1 % Final [facility]: [address] [place] Immature Cells comment Cancelled [facility]: 9[address] [facility] Neutrophils (Absolute) 4.2 x10e3/uL 1.4-7.0 x10e3/uL Final [facility]: [address] [place] Lymphs (Absolute) 2.3 x10e3/uL 0.7-3.1 x10e3/uL Final [facility]: [address] Las[address] Kelly [address] [place] [address] Monocytes(absolute) 0.5 x10e3/uL 0.1-0.9 x10e3/uL [facility]: 9[address] [facility] Eos (Absolute) 0.3 x10e3/uL 0.0-0.4 x10e3/uL Final [facility]: [address] [place] Baso (Absolute) 0.0 x10e3/uL 0.0-0.2 x10e3/uL Final [facility]: [address] [place] Immature Granulocytes 0 % Final [facility]: [address] [place] Immature Grans (Abs) 0.0 x10e3/uL 0.0-0.1 x10e3/uL Final [facility]: 9[address] [facility] Hemat[facility] Comments: comment Cancelled [facility]: 9[address] [facility] 11/02/2016 HbA1C (Hemoglobin a1C), Blood High Hemoglobin a1C 8.5 % 4.8-5.6 % Final [facility]: [address]maureen [address] Estim. Avg Glu (EAG) 197 mg/dL Final [facility]: [address] [place] 11/02/2016 CMP, Serum or Plasma High Glucose, Serum 182 mg/dL 65- 99 mg/dL Final [facility]: [address] Las[address]maureen Kelly [address] [place] [address] Bun 25 mg/dL 8-27 mg/dL Final [facility]: [address] ma[address] [place] [address], [place] Creatinine, Serum 1.20 mg/dL 0.76-1.27 mg/dL Final [facility]: [address] Las[address]maureen Kelly [address] [place] [address] eGFR If Nonafricn AM 60 mL/min/1.73 >59 mL/min/1.73 Final [facility]: [address]maureen [address] eGFR If Africn AM 69 mL/min/1.73 >59 mL/min/1.73 Final [facility]: [address] Smith [address] BUN/creatinine Ratio 21 10-22 Final [facility]: [address] Smith [address] Sodium, Serum 141 mmol/L 134-144 mmol/L Final [facility]: [address] Potassium, Serum 3.9 mmol/L 3.5-5.2 mmol/L Final [facility]: [address] Smith [address] Chloride, Serum 98 mmol/L 96-106 mmol/L Final [facility]: [address] maureen [address] Carbon Dioxide, Total 29 mmol/L 18-29 mmol/L Final [facility]: [address] Calcium, Serum 8.9 mg/dL 8.6-10.2 mg/dL [facility]: [address] Protein, Total, Serum 6.0 g/dL 6.0-8.5 g/dL Final [facility]: [address] Smith [place] [address], [place] Albumin, Serum 3.7 g/dL 3.5-4.8 g/dL Final [facility]: [address] Globulin, Total 2.3 g/dL 1.5-4.5 g/dL Final [facility]: [address] A/g Ratio 1.6 1.2-2.2 Final [facility]: [address] Bilirubin, Total 0.4 mg/dL 0.0-1.2 mg/dL Final [facility]: [address] Alkaline Phosphatase, S 85 IU/L 39-117 IU/L Final [facility]: [address] Ast (Sgot) 10 IU/L 0-40 IU/L Final [facility]: [address] Alt (Sgpt) 15 IU/L 0-44 IU/L Final [facility]: [address] 11/02/2016 PTH (Parathyroid Hormone), Intact, Serum or Plasma PTH, Intact 43 pg/mL 15-65 pg/mL Final [facility]: [address] [place] [address] Albumin:creatinine Ratio, Urine Type Urine Microlalbumin 150 mg /L [facility]: [address] [place] [address], [place] Type Urine Creatinine 50 mg/dL [facility]: [address] [place] [address], [place] Type A:C Ratio >300 mg/g (High Abnormal) [facility]: [address] Past Encounters 10/24/2017 Non-toxic Multinodular Goiter Roe Franklin MD: [address] [address], Ph. 10/22/2017 Osteoarthritis of Knee; Pain in Right Knee; Multinodular Goiter Roe Franklin MD: [address] [address], Ph. 09/20/2017 Vani Maldonado: [address] [address], Ph. [phone] 08/27/2017 Pain in Right Knee; Renal Disorder Due to Type 2 Diabetes Mellitus; Pure Hypercholesterolemia; Lower Urinary Tract Symptoms Due to Benign Prostatic Hypertrophy; Neurologic Disorder Associated with Type 2 Diabetes Mellitus; Body Mass Index 40+ - Severely Obese; Malignant Hypertensive Heart and Renal Disease ; Atrial Fibrillation; Chronic Kidney Disease Stage 3; History of Nephrectomy; Testicular Hypofunction; Nonproliferative Diabetic Retinopathy Roe Franklin MD: [address] [facility], [facility] [address] [address], Ph. 07/09/2017 Malignant Hypertensive Heart and Renal Disease; Pain in Right Knee; Pure Hypercholesterolemia; Lower Urinary Tract Symptoms Due to Benign Prostatic Hypertrophy Roe Franklin MD: [address] [facility], [address] [address], Ph. 06/21/2017 Vani Maldonado: 9055 [facility], [address] [address], Ph. [phone] 06/05/2017 Preoperative Cardiovascular Examination; Idiopathic Osteoarthritis; Pain in Right Knee; Atrial Fibrillation; Long-term Current Use of Anticoagulant; Pure Hypercholesterolemia; Malignant Hypertensive Chronic Kidney Disease; Nonproliferative Diabetic Retinopathy; Neurologic Disorder Associated with Type 2 Diabetes Mellitus; Chronic Kidney Disease Stage 3; Testicular Hypofunction; Low Back Pain; Lower Urinary Tract Symptoms Due to Benign Prostatic Hypertrophy ; Morbid Obesity Roe Franklin MD: [address] [facility], [address] [address], Ph. 05/23/2017 Adult Health Examination; Body Mass Index 40+ - Severely Obese; Morbid Obesity; Malignant Hypertensive Chronic Kidney Disease; Renal Disorder Due to Type 2 Diabetes Mellitus; Chronic Kidney Disease Stage 3; Pure Hypercholesterolemia; Diabetic on Insulin; Lower Urinary Tract Symptoms Due to Benign Prostatic Hypertrophy; At Risk for Falls; Depression Screening; Advance Directive Discussed with Patient; Screening for Malignant Neoplasm of Colon; Immunization ; Screening for Malignant Neoplasm of Prostate; Viral Screening ALICIA Palma: [address] [facility], [facility] [address] [address], Ph. 05/09/2017 Knee Pain; Renal Disorder Due to Type 2 Diabetes Mellitus ALICIA Palma: [address] [facility], [facility] [address], [place] [address], Ph. 05/03/2017 Pure Hypercholesterolemia; Renal Disorder Due to Type 2 Diabetes Mellitus Vani Maldonado: 9055 [facility], [place] [address], [place] [address], Ph. 04/16/2017 Pain in Right Knee; Malignant Hypertensive Chronic Kidney Disease; Renal Disorder Due to Type 2 Diabetes Mellitus; Immunization Roe Franklin MD: [address] [facility], [address] [address], Ph. 04/06/2017 Hypertensive Heart Disease; Neurologic Disorder Associated with Type 2 Diabetes Mellitus; Pain in Right Knee oRe Franklin MD: [address] [address], Ph. 03/15/2017 Idiopathic Osteoarthritis; Malignant Hypertensive Chronic Kidney Disease; Type 2 Diabetes Mellitus Cassaine Snider: [address] [address], Ph. 02/13/2017 Adverse Reaction to Drug; Morbid Obesity; Body Mass Index 40+ - Severely Obese; Pure Hypercholesterolemia; Hypertensive Heart Disease; Lower Urinary Tract Symptoms Due to Benign Prostatic Hypertrophy; Malignant Hypertensive Chronic Kidney Disease; Renal Disorder Due to Type 2 Diabetes Mellitus Roe Franklin MD: 10677 [facility], [address] [address], Ph. 01/30/2017 Hypertensive Heart Disease; Renal Disorder Due to Type 2 Diabetes Mellitus; Neurologic Disorder Associated with Type 2 Diabetes Mellitus; Lower Urinary Tract Symptoms Due to Benign Prostatic Hypertrophy; Low Back Pain; Idiopathic Osteoarthritis Roe Franklin MD: 37327 [facility], [address] [address], Ph. 01/11/2017 Idiopathic Osteoarthritis; Malignant Hypertensive Chronic Kidney Disease; Type 2 Diabetes Mellitus Cassaine Snider: [address] [address], Ph. 01/08/2017 Neurologic Disorder Associated with Type 2 Diabetes Mellitus; Hypertensive Heart Disease; Morbid Obesity ALICIA Palma: [address] [facility], [address] [address], Ph. 12/14/2016 Malignant Hypertensive Chronic Kidney Disease; Type 2 Diabetes Mellitus Aggie Snider: [address] [address], Ph. 12/06/2016 Osteoarthritis of Knee; Malignant Hypertensive Chronic Kidney Disease; Neurologic Disorder Associated with Type 2 Diabetes Mellitus; Lower Urinary Tract Symptoms Due to Benign Prostatic Hypertrophy; Pure Hypercholesterolemia; Edema of Lower Extremity; Immunization Roe Franklin MD: [address] [address], Ph. 11/13/2016 Idiopathic Osteoarthritis; Malignant Hypertensive Chronic Kidney Disease; Type 2 Diabetes Mellitus Aggie Snider: [address] [address], Ph. 11/02/2016 Malignant Hypertensive Chronic Kidney Disease; Neurologic Disorder Associated with Type 2 Diabetes Mellitus; Renal Disorder Due to Type 2 Diabetes Mellitus; Morbid Obesity; Chronic Kidney Disease Stage 3; Pure Hypercholesterolemia Alina ERICKA BarriosP: [address] [address], Ph. 10/17/2016 Pain in Right Knee; Malignant Hypertensive Chronic Kidney Disease; Renal Disorder Due to Type 2 Diabetes Mellitus Roe Franklin MD: [address] [address], Ph. 08/28/2016 Internal Derangement of Right Knee; Malignant Hypertensive Chronic Kidney Disease; Renal Disorder Due to Type 2 Diabetes Mellitus; Neurologic Disorder Associated with Type 2 Diabetes Mellitus; Pure Hypercholesterolemia; Lower Urinary Tract Symptoms Due to Benign Prostatic Hypertrophy Roe Franklin MD: [address] [address], Ph. 08/14/2016 Malignant Hypertensive Chronic Kidney Disease; Neurologic Disorder Associated with Type 2 Diabetes Mellitus; Renal Disorder Due to Type 2 Diabetes Mellitus; Chronic Kidney Disease Stage 3; Morbid Obesity; Lower Urinary Tract Symptoms Due to Benign Prostatic Hypertrophy; Pain in Right Knee Roe Franklin MD: [address] [address], Ph. 07/14/2016 Renewal of Prescription; Osteoarthritis of Knee Amanuel Lr MD: [address] [address], Ph. 06/27/2016 Sprain of Medial Collateral Ligament of Knee; Hypertensive Heart Disease Roe Franklin MD: [address] [facility], [address], [place], [place] [id number], Ph. 06/05/2016 Pain in Right Knee Alina Barrios, TRANSFER STATION ATTENDANT: [id number] [facility], [address], [place] [address], Ph. 05/31/2016 Pain in Right Knee Alina Barrios, TRANSFER STATION ATTENDANT: [id number] [facility], [address], [place] [address], Ph. Social History Smoking Status Never Smoker Vaccine List Vaccine Type influenza, high dose seasonal 04/16/20170.5 mL influenza, injectable, quadrivalent 06/10/2015 influenza, seasonal, injectable 04/30/2014 pneumococcal conjugate PCV 13 05/23/20170.5 mL pneumococcal polysaccharide PPV23 09/28/2010 Tdap 12/06/20160.5 mL zoster 08/06/2014 0.65 mL Plan of Care Patient Instructions It was good to see you in the office today for your Medicare Annual Wellness Visit. You have been provided some information on healthy nutrition, including a diet rich in fruits and vegetables, minimizing simple carbohydrates, salt, and saturated fats. I want to encourage regular cardiovascular exercise such as walking at least 30 minutes daily, 5 times per week. Please remember to schedule any preventive health measures that we talked about today. You have also been provided education on fall prevention and community- based lifestyle interventions to help reduce health risks and promote healthy living in your [employer] folder. Screening Recommendations 1. Vaccines Pneumococcal: discussed today and information sent with patient in their [employer] health folder Influenza: discussed today and information sent with patient in their [employer] health folder Shingles: discussed today and information sent with patient in their [employer] health folder Tetanus: discussed today and information sent with patient in their [employer] health folder 2. Prostate Screening: discussed today and information sent with patient in their [employer] health folder 3. Colorectal cancer Screening Colonoscopy: discussed today and information sent with patient in their [employer] health folder Fecal Occult Blood: discussed today and information sent with patient in their [employer] health folder 4. Bone Mass Measurement: discussed today 5. Eye Exam Screening: discussed today 6. Cholesterol Screening: discussed today 7. Diabetes Screening: discussed today Problem: The patient has a diagnosis of DIABETES Goal:The patients condition will be managed in the outpatient setting and the patients blood sugar will be within normal range. Interventions: -Educate the pt on the importance of blood glucose monitoring daily, keeping a log and taking medications as prescribed. - Educate the importance of eating small healthy meals such as fish chicken, complex carbohydrates-legumes, and whole grains, to stabilize blood sugars. -Educate pt on the s/s of hypoglycemia such as vertigo, MACE, confusion, weakness , anxiety, nervousness, light headed, sweaty, hungry and rapid HR. -Educate patient if blood sugar is <70 or if having any symptoms of hypoglycemia, take one of followin/2 can of regular soda pop, 1 tablespoon of sugar, 1/2 cup of orange juice, or 1 cup of milk. -Educate pt on the S/S of hyperglycemia such as blurred vision, fatigue, MACE, frequent urination, increased thirst. -Educate the pt that a HgAIC is an average of their blood glucose levels over the past 3 months and that it is important to have lab draw q3-6 months. -Educate the patient that they will need to maintain a BP of <140/80. -Educate the patient on importance of annual flu and pneumonia vaccinations -Educate pt that they will need a dilated eye exam and a comprehensive foot exam yearly, and a daily self exam of their feet.(check for dry, cracked skin, look for blisters, cuts scratches, or other sores, check for redness, increased warmth or tenderness when you touch an area, watch for ingrown toenails, corns, and calluses) -Educate pt that they will need a lipid profile yearly,(women)HDL>50LDL<100/TG< 150/HDL>40 (men) -Educate the patient on consistent glucose monitoring and when to report values to the provider. Contact Provider if blood glucose is consistently > 240 after taking medications, or if blood glucose is < 70 or patient is symptomatic after interventions. Problem:The patient has a diagnosis of Hypertension Goal:The patients condition will be managed in the outpatient setting and blood pressure will be within normal limits. Interventions: -Encourage patient to take medication as prescribed. -Encourage patient to decrease sodium intake and limit processed foods and caffeinated drinks. -Encourage patient to monitor blood pressure and keep a log with readings. Bring readings to next scheduled appointment. -Encourage pt to exercise regularly 3-5 times a week for 30 min, unless the patients activity is restricted by the provider. Educate to stay at a healthy weight. Losing weight can lower your blood pressure -Educate patient that hypertension usually has no symptoms but some people may experience the following symptoms: blurred vision, fatigue, nose bleeds, chest pain, and swooshing sound in ears. Problem: The patient has a diagnosis of OA Goal: The patients condition will be managed in the outpatient setting to relieve pain, slow down or stop joint damage, and improve the persons sense of well-being and ability to function. Interventions: - Contact healthcare provider sudden, unexplained swelling, warmth, or pain in any joint, join pain with a fever or rash - Keep routine f/u with pcp/specialist including labs & diagnostic tests - Take all medications as prescribed - Avoid activities such as heavy exercise and lifting. - Use cane for ambulation - Educate pt to use heat to ease pain, take warm showers or baths. Use hot packs or a heating pad set on low. Educate to use an ice or cold pack on area for 10-20 min at a time. Put a thin cloth between the ice and your skin. - CM to assist with PT or other specialist referral if needed -Avoid repeated motions of the joint, especially frequent bending. - Encourage exercise as tolerated and maintaining healthy weight. Problem: The patient has a diagnosis of DIABETES Goal:The patients condition will be managed in the outpatient setting and the patients blood sugar will be within normal range. Interventions: -Educate the pt on the importance of blood glucose monitoring daily, keeping a log and taking medications as prescribed. - Educate the importance of eating small healthy meals such as fish chicken, complex carbohydrates-legumes, and whole grains, to stabilize blood sugars. -Educate pt on the s/s of hypoglycemia such as vertigo, MACE, confusion, weakness , anxiety, nervousness, light headed, sweaty, hungry and rapid HR. -Educate patient if blood sugar is <70 or if having any symptoms of hypoglycemia, take one of followin/2 can of regular soda pop, 1 tablespoon of sugar, 1/2 cup of orange juice, or 1 cup of milk. -Educate pt on the S/S of hyperglycemia such as blurred vision, fatigue, MACE, frequent urination, increased thirst. -Educate the pt that a HgAIC is an average of their blood glucose levels over the past 3 months and that it is important to have lab draw q3-6 months. -Educate the patient that they will need to maintain a BP of <140/80. -Educate the patient on importance of annual flu and pneumonia vaccinations -Educate pt that they will need a dilated eye exam and a comprehensive foot exam yearly, and a daily self exam of their feet.(check for dry, cracked skin, look for blisters, cuts scratches, or other sores, check for redness, increased warmth or tenderness when you touch an area, watch for ingrown toenails, corns, and calluses) -Educate pt that they will need a lipid profile yearly,(women)HDL>50LDL<100/TG< 150/HDL>40 (men) -Educate the patient on consistent glucose monitoring and when to report values to the provider. Contact Provider if blood glucose is consistently > 240 after taking medications, or if blood glucose is < 70 or patient is symptomatic after interventions. Problem:The patient has a diagnosis of Hypertension Goal:The patients condition will be managed in the outpatient setting and blood pressure will be within normal limits. Interventions: -Encourage patient to take medication as prescribed. -Encourage patient to decrease sodium intake and limit processed foods and caffeinated drinks. -Encourage patient to monitor blood pressure and keep a log with readings. Bring readings to next scheduled appointment. -Encourage pt to exercise regularly 3-5 times a week for 30 min, unless the patients activity is restricted by the provider. Educate to stay at a healthy weight. Losing weight can lower your blood pressure -Educate patient that hypertension usually has no symptoms but some people may experience the following symptoms: blurred vision, fatigue, nose bleeds, chest pain, and swooshing sound in ears. Problem: The patient has a diagnosis of OA Goal: The patients condition will be managed in the outpatient setting to relieve pain, slow down or stop joint damage, and improve the persons sense of well-being and ability to function. Interventions: - Contact healthcare provider sudden, unexplained swelling, warmth, or pain in any joint, join pain with a fever or rash - Keep routine f/u with pcp/specialist including labs & diagnostic tests - Take all medications as prescribed - Avoid activities such as heavy exercise and lifting. - Use cane for ambulation - Educate pt to use heat to ease pain, take warm showers or baths. Use hot packs or a heating pad set on low. Educate to use an ice or cold pack on area for 10-20 min at a time. Put a thin cloth between the ice and your skin. - CM to assist with PT or other specialist referral if needed -Avoid repeated motions of the joint, especially frequent bending. - Encourage exercise as tolerated and maintaining healthy weight. Problem: The patient has a diagnosis of DIABETES Goal:The patients condition will be managed in the outpatient setting and the patients blood sugar will be within normal range. Interventions: -Educate the pt on the importance of blood glucose monitoring daily, keeping a log and taking medications as prescribed. - Educate the importance of eating small healthy meals such as fish chicken, complex carbohydrates-legumes, and whole grains, to stabilize blood sugars. -Educate pt on the s/s of hypoglycemia such as vertigo, MACE, confusion, weakness , anxiety, nervousness, light headed, sweaty, hungry and rapid HR. -Educate patient if blood sugar is <70 or if having any symptoms of hypoglycemia, take one of followin/2 can of regular soda pop, 1 tablespoon of sugar, 1/2 cup of orange juice, or 1 cup of milk. -Educate pt on the S/S of hyperglycemia such as blurred vision, fatigue, MACE, frequent urination, increased thirst. -Educate the pt that a HgAIC is an average of their blood glucose levels over the past 3 months and that it is important to have lab draw q3-6 months. -Educate the patient that they will need to maintain a BP of <140/80. -Educate the patient on importance of annual flu and pneumonia vaccinations -Educate pt that they will need a dilated eye exam and a comprehensive foot exam yearly, and a daily self exam of their feet.(check for dry, cracked skin, look for blisters, cuts scratches, or other sores, check for redness, increased warmth or tenderness when you touch an area, watch for ingrown toenails, corns, and calluses) -Educate pt that they will need a lipid profile yearly,(women)HDL>50LDL<100/TG< 150/HDL>40 (men) -Educate the patient on consistent glucose monitoring and when to report values to the provider. Contact Provider if blood glucose is consistently > 240 after taking medications, or if blood glucose is < 70 or patient is symptomatic after interventions. Problem:The patient has a diagnosis of Hypertension Goal:The patients condition will be managed in the outpatient setting and blood pressure will be within normal limits. Interventions: -Encourage patient to take medication as prescribed. -Encourage patient to decrease sodium intake and limit processed foods and caffeinated drinks. -Encourage patient to monitor blood pressure and keep a log with readings. Bring readings to next scheduled appointment. -Encourage pt to exercise regularly 3-5 times a week for 30 min, unless the patients activity is restricted by the provider. Educate to stay at a healthy weight. Losing weight can lower your blood pressure -Educate patient that hypertension usually has no symptoms but some people may experience the following symptoms: blurred vision, fatigue, nose bleeds, chest pain, and swooshing sound in ears. Problem: The patient has a diagnosis of OA Goal: The patients condition will be managed in the outpatient setting to relieve pain, slow down or stop joint damage, and improve the persons sense of well-being and ability to function. Interventions: - Contact healthcare provider sudden, unexplained swelling, warmth, or pain in any joint, join pain with a fever or rash - Keep routine f/u with pcp/specialist including labs & diagnostic tests - Take all medications as prescribed - Avoid activities such as heavy exercise and lifting. - Use cane for ambulation - Educate pt to use heat to ease pain, take warm showers or baths. Use hot packs or a heating pad set on low. Educate to use an ice or cold pack on area for 10-20 min at a time. Put a thin cloth between the ice and your skin. - CM to assist with PT or other specialist referral if needed -Avoid repeated motions of the joint, especially frequent bending. - Encourage exercise as tolerated and maintaining healthy weight. Problem: The patient has a diagnosis of DIABETES Goal:The patients condition will be managed in the outpatient setting and the patients blood sugar will be within normal range. Interventions: -Educate the pt on the importance of blood glucose monitoring daily, keeping a log and taking medications as prescribed. - Educate the importance of eating small healthy meals such as fish chicken, complex carbohydrates-legumes, and whole grains, to stabilize blood sugars. -Educate pt on the s/s of hypoglycemia such as vertigo, MACE, confusion, weakness , anxiety, nervousness, light headed, sweaty, hungry and rapid HR. -Educate patient if blood sugar is <70 or if having any symptoms of hypoglycemia, take one of followin/2 can of regular soda pop, 1 tablespoon of sugar, 1/2 cup of orange juice, or 1 cup of milk. -Educate pt on the S/S of hyperglycemia such as blurred vision, fatigue, MACE, frequent urination, increased thirst. -Educate the pt that a HgAIC is an average of their blood glucose levels over the past 3 months and that it is important to have lab draw q3-6 months. -Educate the patient that they will need to maintain a BP of <140/80. -Educate the patient on importance of annual flu and pneumonia vaccinations -Educate pt that they will need a dilated eye exam and a comprehensive foot exam yearly, and a daily self exam of their feet.(check for dry, cracked skin, look for blisters, cuts scratches, or other sores, check for redness, increased warmth or tenderness when you touch an area, watch for ingrown toenails, corns, and calluses) -Educate pt that they will need a lipid profile yearly,(women)HDL>50LDL<100/TG< 150/HDL>40 (men) -Educate the patient on consistent glucose monitoring and when to report values to the provider. Contact Provider if blood glucose is consistently > 240 after taking medications, or if blood glucose is < 60 or patient is symptomatic after interventions. Problem:The patient has a diagnosis of Hypertension Goal:The patients condition will be managed in the outpatient setting and blood pressure will be within normal limits. Interventions: -Encourage patient to take medication as prescribed. -Encourage patient to decrease sodium intake and limit processed foods and caffeinated drinks. -Encourage patient to monitor blood pressure and keep a log with readings. Bring readings to next scheduled appointment. -Encourage pt to exercise regularly 3-5 times a week for 30 min, unless the patients activity is restricted by the provider. Educate to stay at a healthy weight. Losing weight can lower your blood pressure -Educate patient that hypertension usually has no symptoms but some people may experience the following symptoms: blurred vision, fatigue, nose bleeds, chest pain, and swooshing sound in ears. Problem: The patient has a diagnosis of OA Goal: The patients condition will be managed in the outpatient setting to relieve pain, slow down or stop joint damage, and improve the persons sense of well-being and ability to function. Interventions: - Contact healthcare provider sudden, unexplained swelling, warmth, or pain in any joint, join pain with a fever or rash - Keep routine f/u with pcp/specialist including labs & diagnostic tests - Take all medications as prescribed - Avoid activities such as heavy exercise and lifting. - Use cane for ambulation - Educate pt to use heat to ease pain, take warm showers or baths. Use hot packs or a heating pad set on low. Educate to use an ice or cold pack on area for 10-20 min at a time. Put a thin cloth between the ice and your skin. - CM to assist with PT or other specialist referral if needed -Avoid repeated motions of the joint, especially frequent bending. - Encourage exercise as tolerated and maintaining healthy weight. Reminders Provider Appointments None recorded. Lab None recorded. Referral None recorded. Procedures None recorded. Surgeries None recorded. Imaging None recorded. Vitals 10/24/2017 09:15AM Ultrasound Height Weight BMI Blood Pressure 5 ft 10 in 294.2 lbs 42.2 kg/m2 133/77 mm[Hg] 10/22/2017 04:15PM Est Patient Height Weight BMI Blood Pressure 5 ft 10 in 294.3 lbs 42.2 kg/m2 140/77 mm[Hg] 08/27/2017 02:45PM Est Patient Height Weight BMI Blood Pressure 5 ft 10 in 295.8 lbs 42.4 kg/m2 138/83 mm[Hg] 07/09/2017 02:00PM Est Patient Height Weight BMI Blood Pressure 5 ft 10 in 306 lbs 43.9 kg/m2 129/68 mm[Hg] 06/05/2017 10:15AM Est Patient Height Weight BMI Blood Pressure 5 ft 10 in 294 lbs 42.2 kg/m2 151/77 mm[Hg] 05/23/2017 02:00PM AWV Height Weight BMI Blood Pressure 5 ft 10 in 298 lbs 42.8 kg/m2 132/70 mm[Hg] 05/09/2017 04:30PM Est Patient Height Weight BMI Blood Pressure 5 ft 10 in 298.3 lbs 42.8 kg/m2 138/90 mm[Hg] 04/16/2017 11:30AM Est Patient Height Weight BMI Blood Pressure 5 ft 10 in 301.8 lbs 43.3 kg/m2 130/67 mm[Hg] 04/06/2017 10:15AM Work In Same Day Height Weight BMI Blood Pressure 5 ft 10 in 318.4 lbs 45.7 kg/m2 (1) 171/80 mm[Hg] (2) 185/89 mm[Hg] 02/13/2017 11:45AM Est Patient Height Weight BMI Blood Pressure 5 ft 10 in 310 lbs 44.5 kg/m2 (1) 155/92 mm[Hg] (2) 150/93 mm[Hg] 01/30/2017 01:45PM Est Patient Height Weight BMI Blood Pressure 5 ft 10 in 307.2 lbs 44.1 kg/m2 145/80 mm[Hg] 01/08/2017 11:30AM Est Patient Height Weight BMI Blood Pressure 5 ft 10 in 297 lbs 42.6 kg/m2 139/69 mm[Hg] 12/06/2016 11:45AM Est Patient Height Weight BMI Blood Pressure 5 ft 10 in 305.6 lbs 43.8 kg/m2 124/69 mm[Hg] 11/02/2016 10:00AM Est Patient Height Weight BMI Blood Pressure 5 ft 10 in 302.8 lbs 43.4 kg/m2 113/56 mm[Hg] 10/17/2016 02:00PM Est Patient Height Weight BMI Blood Pressure 5 ft 10 in 296.2 lbs 42.5 kg/m2 164/83 mm[Hg] 08/28/2016 03:45PM Est Patient Height Weight BMI Blood Pressure 5 ft 10 in 304.6 lbs 43.7 kg/m2 160/76 mm[Hg] 08/14/2016 03:00PM Est Patient Height Weight BMI Blood Pressure 5 ft 10 in 308 lbs 44.2 kg/m2 167/85 mm[Hg] 07/14/2016 02:00PM Est Patient Height Weight BMI Blood Pressure 5 ft 10 in 298.4 lbs 42.8 kg/m2 149/75 mm[Hg] 06/27/2016 10:00AM Est Patient Height Weight BMI Blood Pressure 5 ft 10 in 294 lbs 42.2 kg/m2 164/74 mm[Hg] 06/05/2016 09:15AM Est Patient Height Weight BMI Blood Pressure 5 ft 10 in 284.4 lbs 40.8 kg/m2 148/67 mm[Hg] 05/31/2016 10:15AM Work In Same Day Height Weight BMI Blood Pressure 5 ft 10 in 291.2 lbs 41.8 kg/m2 140/79 mm[Hg] 11/26/2015 Height Weight BMI Blood Pressure 5 ft 10 in 295.4 lbs 42.38 kg/m2 132/72 mm[Hg] 10/20/2015 Height Weight BMI Blood Pressure 5 ft 10 in 287.4 lbs 41.23 kg/m2 126/72 mm[Hg] 10/04/2015 Height Weight BMI Blood Pressure 5 ft 10 in 287.4 lbs 41.23 kg/m2 127/68 mm[Hg] 09/06/2015 Height Weight BMI Blood Pressure 5 ft 10 in 283 lbs 40.60 kg/m2 140/60 mm[Hg] 08/18/2015 Height Weight BMI Blood Pressure 5 ft 10 in 294 lbs 42.18 kg/m2 133/75 mm[Hg] 07/19/2015 Height Weight BMI Blood Pressure 5 ft 10 in 292.6 lbs 41.98 kg/m2 142/76 mm[Hg] 07/07/2015 Height Weight BMI Blood Pressure 5 ft 10 in 293.4 lbs 42.09 kg/m2 132/68 mm[Hg] 06/28/2015 Height Weight BMI Blood Pressure 5 ft 10 in 286.4 lbs 41.09 kg/m2 126/62 mm[Hg] 06/23/2015 Height BMI 5 ft 10 in 42.04 kg/m2 06/23/2015 Weight Blood Pressure 293 lbs 135/70 mm[Hg] 06/22/2015 Height Weight BMI Blood Pressure 5 ft 10 in 293.8 lbs 42.15 kg/m2 137/72 mm[Hg] 06/10/2015 Height Weight BMI Blood Pressure 5 ft 10 in 293 lbs 42.04 kg/m2 146/72 mm[Hg] 04/19/2015 Height BMI 5 ft 10 in 41.72 kg/m2 04/19/2015 Weight Blood Pressure 290.8 lbs 124/86 mm[Hg] 03/09/2015 Height Weight BMI Blood Pressure 5 ft 10 in 289.4 lbs 41.52 kg/m2 136/70 mm[Hg] 01/20/2015 Height Weight BMI Blood Pressure 5 ft 10 in 286.4 lbs 41.09 kg/m2 138/70 mm[Hg] 11/17/2014 Height Weight BMI Blood Pressure 5 ft 10 in 288.4 lbs 41.38 kg/m2 125/70 mm[Hg] 10/30/2014 Height Weight BMI Blood Pressure 5 ft 10 in 288.4 lbs 41.38 kg/m2 130/60 mm[Hg] 09/29/2014 Height Weight BMI Blood Pressure 5 ft 10 in 290 lbs 41.61 kg/m2 130/70 mm[Hg] 08/28/2014 Blood Pressure 125/78 mm[Hg] 08/28/2014 Height Weight BMI 5 ft 10 in 281.6 lbs 40.40 kg/m2 08/10/2014 Height Weight BMI Blood Pressure 5 ft 10 in 286 lbs 41.03 kg/m2 122/76 mm[Hg] 07/14/2014 Height Weight BMI Blood Pressure 5 ft 10 in 282 lbs 40.46 kg/m2 130/70 mm[Hg] 07/08/2014 Height Weight BMI Blood Pressure 5 ft 10 in 287.6 lbs 41.26 kg/m2 134/70 mm[Hg] 04/30/2014 Height Weight BMI Blood Pressure 5 ft 10 in 284.4 lbs 40.80 kg/m2 140/80 mm[Hg] 03/12/2014 Height Weight 5 ft 10 in 280.6 lbs 10/24/2013 Height Weight 5 ft 10 in 279 lbs 09/15/2013 Height Weight 5 ft 10 in 292 lbs 07/25/2013 Height Weight 5 ft 10 in 286 lbs 06/30/2013 Height Weight 5 ft 10 in 295 lbs 06/04/2013 Height Weight 5 ft 10 in 293.6 lbs 04/23/2013 Height Weight 5 ft 10 in 293.8 lbs 03/25/2013 Height Weight 5 ft 10 in 300.6 lbs 03/18/2013 Height Weight 5 ft 10 in 302 lbs 02/20/2013 Height Weight 5 ft 10 in 315.6 lbs 02/04/2013 Height Weight 5 ft 10 in 315 lbs 01/02/2013 Height Weight 5 ft 10 in 312.2 lbs 11/27/2012 Height Weight 5 ft 10 in 307 lbs 10/22/2012 Height Weight 5 ft 10 in 300.5 lbs 10/16/2012 Height Weight 5 ft 10 in 303.6 lbs 09/18/2012 Height Weight 5 ft 10 in 299.8 lbs 08/29/2012 Height Weight 5 ft 10 in 299.8 lbs 08/12/2012 Height Weight 5 ft 10 in 302 lbs 07/11/2012 Height Weight 5 ft 10 in 299 lbs 06/26/2012 Height Weight 5 ft 10 in 304 lbs 06/12/2012 Height Weight 5 ft 10 in 301.4 lbs 05/06/2012 Height Weight 5 ft 10 in 306 lbs 04/02/2012 Height Weight 5 ft 10 in 299.4 lbs 02/22/2012 Height Weight 5 ft 10 in 298.4 lbs 01/10/2012 Height Weight 5 ft 10 in 295.4 lbs 12/18/2011 Height Weight 5 ft 10 in 298 lbs 10/24/2011 Height Weight 5 ft 10 in 296.6 lbs 10/10/2011 Height Weight 5 ft 10 in 295.6 lbs 09/26/2011 Height Weight 5 ft 10 in 294 lbs 09/12/2011 Height Weight 5 ft 10 in 290.6 lbs 08/29/2011 Height Weight 5 ft 10 in 291.2 lbs 08/19/2011 Height Weight 5 ft 10 in 289 lbs 08/16/2011 Height Weight 5 ft 10 in 291.6 lbs 08/02/2011 Height Weight 5 ft 10 in 285 lbs 07/10/2011 Height Weight 5 ft 10 in 287.8 lbs 06/16/2011 Height Weight 5 ft 10 in 290.8 lbs 04/04/2011 Height Weight 5 ft 10 in 291 lbs 02/20/2011 Height Weight 5 ft 10 in 285.8 lbs 02/08/2011 Height Weight 5 ft 10 in 286 lbs 01/30/2011 Height Weight 5 ft 10 in 286.2 lbs 01/17/2011 Height Weight 5 ft 10 in 279.8 lbs 01/03/2011 Height Weight 5 ft 10 in 280.8 lbs 12/14/2010 Height Weight 5 ft 10 in 280 lbs 10/24/2010 Height Weight 5 ft 10 in 285 lbs 10/04/2010 Height Weight 5 ft 10 in 286 lbs 09/28/2010 Height Weight 5 ft 10 in 285.4 lbs 08/31/2010 Height Weight 5 ft 10 in 280.4 lbs 08/02/2010 Height Weight 5 ft 10 in 282.8 lbs 06/08/2010 Height Weight 5 ft 10 in 280.2 lbs 05/23/2010 Height Weight 5 ft 10 in 281.6 lbs 02/23/2010 Height Weight 5 ft 10 in 274.4 lbs 02/16/2010 Height Weight 5 ft 10 in 274.4 lbs 12/28/2009 Weight 273.8 lbs 12/03/2009 Weight 271.6 lbs 10/18/2009 Weight 271 lbs 09/06/2009 Weight 278 lbs 07/08/2009 Weight 276 lbs 06/18/2009 Weight 274 lbs 05/27/2009 Weight 274 lbs 03/29/2009 Weight 270 lbs 02/17/2009 Height Weight 5 ft 10 in 271 lbs 02/09/2009 Weight 271 lbs 12/24/2008 Height Weight 5 ft 10 in 270 lbs 12/21/2008 Height Weight 5 ft 11.5 in 270 lbs 11/19/2008 Weight 261 lbs 10/05/2008 Weight 258 lbs 09/11/2008 Weight 262 lbs 08/03/2008 Weight 271.3 lbs 06/25/2008 Weight 259.8 lbs 05/18/2008 Weight 262.1 lbs 03/27/2008 Weight 262.9 lbs 02/17/2008 Weight 261.1 lbs 01/27/2008 Weight 263.6 lbs 12/25/2007 Weight 255.1 lbs 10/31/2007 Weight 257.2 lbs 10/14/2007 Weight 261.8 lbs 09/06/2007 Weight 257.7 lbs 08/19/2007 Weight 255.4 lbs 08/08/2007 Height Weight 5 ft 10 in 250.7 lbs 08/07/2007 Weight 250.7 lbs 07/01/2007 Weight 249.6 lbs 06/19/2007 Weight 249.2 lbs 05/02/2007 Height Weight 5 ft 10 in 257.7 lbs 05/01/2007 Height Weight 5 ft 10 in 256.9 lbs 04/01/2007 Weight 255 lbs 03/22/2007 Weight 250.9 lbs 03/19/2007 Weight 250.5 lbs 03/08/2007 Weight 252.8 lbs 03/04/2007 Weight 258.6 lbs 02/18/2007 Weight 252.4 lbs 01/22/2007 Weight 255 lbs 01/14/2007 Weight 254.7 lbs 12/11/2006 Height Weight 5 ft 10 in 254.3 lbs 11/07/2006 Weight 253.5 lbs 10/12/2006 Weight 253 lbs 10/04/2006 Weight 256.2 lbs 09/03/2006 Weight 251.2 lbs 08/20/2006 Weight 251.9 lbs 07/25/2006 Weight 252.6 lbs 07/23/2006 Weight 254.6 lbs 06/26/2006 Weight 254.8 lbs 06/25/2006 Weight 253 lbs 06/18/2006 Weight 274 lbs 04/17/2006 Weight 250 lbs 03/14/2006 Weight 250 lbs 03/13/2006 Weight 250 lbs 01/25/2006 Weight 240 lbs 01/19/2006 Weight 240 lbs 01/15/2006 Weight 243 lbs 09/06/2005 Weight 247 lbs 02/27/2005 Weight 243 lbs 09/01/2004 Weight 240 lbs
[2018-01-05] MEDS ORDERED: COLCHICINE 0.6 MG TAB PO STA ×2 (12:26→13:28)
[2018-01-05 12:50] LABS: BASOPHILS # (AUTO) 0.1 (0.0-0.1); BASOPHILS % 0.5 % (0.0-1.0); EOSINOPHILS # (AUTO) 0.1 (0.0-0.4); EOSINOPHILS % 0.4 % (0.0-6.0); HEMOGLOBIN 13.5 g/dL (14.0-18.0); LYMPHOCYTES % 15.4 % (18.0-39.1); MEAN CORPUSCULAR HEMOGLOBIN 28.9 pg (28-32); MEAN CORPUSCULAR HGB CONC 32.9 g/dL (31-35); MEAN CORPUSCULAR VOLUME 87.8 fL (81-99); MONOCYTES # (AUTO) 1.2 (0.2-0.8); MONOCYTES % 9.3 % (4.4-11.3); NEUTROPHILS # (AUTO) 9.4 (2.1-6.9); NEUTROPHILS % 73.9 % (38.7-80.0); PLATELET COUNT 299 x10e3/uL (140-360); RED BLOOD COUNT 4.67 x10e6/uL (4.3-5.7); RED CELL DISTRIBUTION WIDTH 14.3 % (11.7-14.4)
[2018-01-05 13:07] LABS: ALBUMIN 3.8 g/dL (3.5-5.0); ALBUMIN/GLOBULIN RATIO 0.8 (0.8-2.0); ANION GAP 15.1 mmol/L (8-16); CALCIUM 10.3 mg/dL (8.4-10.2); CREATININE, SERUM 1.52 mg/dL (0.72-1.25); POTASSIUM 3.1 mmol/L (3.5-5.1)
[2018-01-05] MEDS ORDERED: ONDANSETRON HCL INJ 2 MG/ML VIAL IV STA (13:28)
[2018-01-05] MEDS ORDERED: HYDROMORPHONE 2MG/ML INJ IM ONE (13:30)
[2018-01-05] MEDS ORDERED: ONDANSETRON HCL 4 MG ORAL DISINTEGRATING TAB PO NR (13:45)
== END 2018-01-05 15:29 | disposition home or self-care (01) ==
LOC: ER 11:39
DX: M25.552 Pain in left hip (principal); M79.652 Pain in left thigh; M25.562 Pain in left knee; M79.662 Pain in left lower leg; M25.572 Pain in left ankle and joints of left foot; M10.072 Idiopathic gout, left ankle and foot; I10 Essential (primary) hypertension; E11.9 Type 2 diabetes mellitus without complications; I48.91 Unspecified atrial fibrillation; I25.10 Atherosclerotic heart disease of native coronary artery without angina pectoris; Z85.53 Personal history of malignant neoplasm of renal pelvis; Z96.651 Presence of right artificial knee joint
CPT/HCPCS: 36415; 80053; 84550; 85025; 99284; J1170